=== PATIENT | male | born 2000 | race Hispanic/Latino ===

== ENCOUNTER 2021-12-17 21:02 | Emergency (ER) | payer OTHER, SELFPAY ==
[2021-12-17] MEDS ORDERED: Ketorolac Tromethamine 30 MG/ML VIAL ONE (21:31)
== END 2021-12-17 22:09 | disposition home or self-care (01) ==
LOC: CSHERS 21:02
DX: M94.0 Chondrocostal junction syndrome [Tietze] (principal)
CPT/HCPCS: 71045; 93005; 96372; J1885